=== PATIENT | female | born 1955 | race Hispanic/Latino ===

== ENCOUNTER 2019-02-15 06:45 | Inpatient (IN) | payer MEDICARE, OTHER ==
[~2019-02-15] VITALS: Ht 157.5 cm; Wt 75.8 kg
--- NOTE | ~2019-02-15 | DS ---
[facility] [address] [place], [place] [address] Draft ADMISSION DATE: 02/15/2019 DISCHARGE DATE: 02/17/2019 FINAL DIAGNOSIS: At time of discharge, end-stage osteoarthritis, right knee. PROCEDURE: Right total knee arthroplasty. HISTORY OF PRESENT ILLNESS: The patient is a 63-year-old female with a long history of osteoarthritis in both knees, more symptomatic on the right. She has reached the point where she does not get any symptomatic relief with conservative modalities and therefore presented for an elective total knee arthroplasty on the right. HOSPITAL COURSE: The patient was admitted to Day Surgery on the 15 of February. She was taken to the operating room, where she underwent an Attune fixed bearing PS knee replacement on the right. Postoperatively, she has done extremely well. She has progressed rapidly through physical therapy having met all of her goals. She is getting excellent pain control alternating some OxyIR with tramadol and is no longer having significant nausea problems. Plan is to discharge her home and have her continue outpatient physical therapy at [facility], which is closer to where she lives. We will also send her home with prescriptions for OxyIR and Ultram. She will be continued on Xarelto for DVT prophylaxis for the next month. We will ask her to follow up in a month for re-evaluation and new x-rays. MD JARETH Rubio/EMANUEL /[id number] Copies: PATIENT NAME: RONAK GONG DISCHARGE SUMMARY DATE OF : 51 REPORT #: [id number] PHYSICIAN: REGINA SANTOS MD PCP: LUTHER GROSS REPORT IS CONFIDENTIAL AND NOT TO BE RELEASED WITHOUT AUTHORIZATION [address] [address] Draft ~ PATIENT NAME: RONAK GONG DISCHARGE SUMMARY DATE OF : 51 REPORT #: [id number] PHYSICIAN: REGINA SANTOS MD PCP: LUTHER GROSS REPORT IS CONFIDENTIAL AND NOT TO BE RELEASED WITHOUT AUTHORIZATION
--- OUTSIDE RECORDS SUMMARY | ~2019-02-15 | XMS | Clinical Summary ---
Demographics + + + | Address | [address] | | | [place] [address] | + + + | Home Phone | | + + + | Preferred Language | Unknown | + + + | Marital Status | | + + + | Restorationist Affiliation | Unknown | + + + | Race | Unknown | + + + | Ethnic Group | Unknown | + + + Author + + + | Author | [facility] | | | and [place] | + + + | Organization | [facility] | | | and [place] | + + + | Address | Unknown | + + + | Phone | Unavailable | + + + Support + + + + + | Name | Relationship | Address | Phone | + + + + + | Armand Auguste | ECON | [address] | | | | | [place], [place] | | | | | [address] | | + + + + + | Yesica Rowe | ECON | [address] | | | | | [place], [place] | | | | | [address] | | + + + + + Care Team Providers + +------+ + | Care Dieing Out Machine Operator Name | Role | Phone | + +------+ + | No Physician | PP | Unavailable | + +------+ + Allergies + + + + + + | Active Allergy | Reactions | Severity | Noted | Comments | | | | | Date | | + + + + + + | Sulfa Antibiotics | Rash | Low | 02/02/20 | | | | | | 13 | | + + + + + + Medications + + + +---------+------+------+-------+ | Medication | Sig | Dispensed | Refills | Star | End | Statu | | | | | | t | Date | s | | | | | | Date | | | + + + +---------+------+------+-------+ | | Take 1 tablet by | 60 | 0 | 09/2 | | Activ | | HYDROcodone-acetamin | mouth every 8 hours | tablet | | 04/23 | | e | | ophen (NORCO) 5-325 | as needed. | | | 13 | | | | mg per | | | | | | | | tabletIndications: | | | | | | | | Back pain | | | | | | | + + + +---------+------+------+-------+ | traMADol (ULTRAM) | Take 50 mg by mouth | | 0 | | | Activ | | 50 mg tablet | every 6 hours as | | | | | e | | | needed. | | | | | | + + + +---------+------+------+-------+ Active Problems + + + | Problem | Noted Date | + + + | Sacroiliitis - left | 05/14/2013 | + + + | Trochanteric bursitis of left hip | 03/19/2013 | + + + | Fracture of L3 vertebra | 02/02/2013 | + + + | Fracture of L2 vertebra | 02/02/2013 | + + + | Coccydynia | 02/02/2013 | + + + Family History + + +------+ + | Medical History | Relation | Name | Comments | + + +------+ + | Diabetes | Father | | | + + +------+ + | Cancer | Sister | | | + + +------+ + | High blood pressure | Sister | | | + + +------+ + + +------+--------+ + | Relation | Name | Status | Comments | + +------+--------+ + | Father | | | | + +------+--------+ + | Sister | | | | + +------+--------+ + | Sister | | | | + +------+--------+ + Social History + +-------+ +--------+------+ | Tobacco Use | Types | Packs/Day | Years | Date | | | | | Used | | + +-------+ +--------+------+ | Never Smoker | | | | | + +-------+ +--------+------+ + + + | Sex Assigned at | Date Recorded | | | | + + + | Not on file | | + + + + + + + | Job Start Date | Occupation | Industry | + + + + | Not on file | Not on file | Not on file | + + + + + + + + | Travel History | Travel Start | Travel End | + + + + + + | No recent travel history available. | + + Last Filed Vital Signs + + + + | Vital Sign | Reading | Time Taken | + + + + | Blood Pressure | 143/80 | 12/13/20131121 PDT | + + + + | Pulse | 73 | 12/13/20131121 PDT | + + + + | Temperature | - | - | + + + + | Respiratory Rate | 16 | 12/13/20131121 PDT | + + + + | Oxygen Saturation | - | - | + + + + | Inhaled Oxygen | - | - | | Concentration | | | + + + + | Weight | 78 kg (172 lb) | 02/08/20141203 PDT | + + + + | Height | 157.5 cm (5' 2") | 02/08/20141203 PDT | + + + + | Body Mass Index | 31.46 | 02/08/2014 1204 PDT | + + + + Plan of Treatment + + + + + | Health Maintenance | Due Date | Last Done | Comments | + + + + + | Vaccine: | | | | | Dtap/Tdap/Td (1 - | 2 | | | | Tdap) | | | | + + + + + | Vaccine: Zoster (1 | | | | | of 2) | 3 | | | + + + + + | Vaccine: | | | | | Pneumococcal 65+ | 8 | | | | Low/Medium Risk (1 | | | | | of 2 - PCV13) | | | | + + + + + | Vaccine: Influenza | | | | | (Season Ended) | 9 | | | + + + + + Results Not on filefrom Last 3 Months Insurance + +--------+ +--------+ +---------+--------+ | Payer | Benefi | Subscriber | Effect | Phone | Address | Type | | | t Plan | ID | jackelyn | | | | | | / | | Dates | | | | | | Group | | | | | | + +--------+ +--------+ +---------+--------+ | [employer] | SAIF | [id number] | [phone] | | Indemn | | | WC | | 013-Pr | 5 | | ity | | | | | esent | | | | + +--------+ +--------+ +---------+--------+ + +--------+ +--------+ + + | Guarantor Name | Accoun | Relation to | Date | Phone | Billing Address | | | t Type | Patient | of | | | | | | | | | | + +--------+ +--------+ + + | Chari Auguste | Worker | Self | [birth year] | [address] | | | s Comp | | 1954 | [phone] | [place] [address] | | | | | | 2 (Home) | | | | | | | [phone] | | | | | | | 9 (Work) | | + +--------+ +--------+ + + | Chari Auguste | Person | Self | [birth year] | | [address] | | | al/Fam | | 1954 | [phone] | [place] [address] | | | [place] | | | 2 (Home) | | + +--------+ +--------+ + + Advance Directives Patient has advance care planning documents on file. For more information, please contact:[facility] [place] [address]
--- OUTSIDE RECORDS SUMMARY | ~2019-02-15 | XMS | Clinical Summary ---
Demographics + + + | Address | [address] | | | [place] [address] | + + + | Home Phone | | + + + | Preferred Language | Unknown | + + + | Marital Status | | + + + | Temple Affiliation | Unknown | + + + | Race | Unknown | + + + | Ethnic Group | Unknown | + + + Author + + + | Author | [facility] | + + + | Organization | [facility] | + + + | Address | Unknown | + + + | Phone | Unavailable | + + + Support + + +---------+ + | Name | Relationship | Address | Phone | + + +---------+ + | Yesica Rowe | ECON | Unknown | | + + +---------+ + Care Team Providers + +------+ + | Care Web Content Specialist Name | Role | Phone | + +------+ + | Noreen Martinez MD | PP | Unavailable | + +------+ + Allergies Not on File Current Medications Not on file Active Problems Not on file Social History + +-------+ +--------+------+ | Tobacco Use | Types | Packs/Day | Years | Date | | | | | Used | | + +-------+ +--------+------+ | Never Assessed | | | | | + +-------+ +--------+------+ + + + | Sex Assigned at | Date Recorded | | | | + + + | Not on file | | + + + Plan of Treatment + + + + + | Health Maintenance | Due Date | Last Done | Comments | + + + + + | Vaccine: | | | | | Dtap/Tdap/Td (1 - | 2 | | | | Tdap) | | | | + + + + + | Breast Cancer | | | | | Screening | 3 | | | | (Mammogram) | | | | + + + + + | Colon Cancer | | | | | Screening | 3 | | | | (Colonoscopy) | | | | + + + + + | Vaccine: Zoster (1 | | | | | of 2) | 3 | | | + + + + + | DEXA SCAN SCREENING | | | | | | 8 | | | + + + + + | Vaccine: | | | | | Pneumococcal 65+ | 8 | | | | Low/Medium Risk (1 | | | | | of 2 - PCV13) | | | | + + + + + | Vaccine: Influenza | | 2014 | | | (Season Ended) | 9 | | | + + + + + Results Not on filefrom Last 3 Months Insurance + +--------+ +------+-------+ + | Payer | Benefi | Subscriber | Type | Phone | Address | | | t Plan | ID | | | | | | / | | | | | | | Group | | | | | + +--------+ +------+-------+ + | MEDICAID | [employer] | [id number] | | | [address] | | | [place] | | | | [place] | | | [place] | | | | [phone] | | | SOLUTION STRATEGIST | | | | | + +--------+ +------+-------+ + + +--------+ +--------+ + + | Guarantor Name | Accoun | Relation to | Date | Phone | Billing Address | | | t Type | Patient | of | | | | | | | | | | + +--------+ +--------+ + + | CHARI GONG | Person | Self | [birth year] | Home: | [address] | | | al/Fam | | [phone] [place] | | | [place] | | [phone] | + +--------+ +--------+ + +"
[~2019-02-15 06:45] MED LIST: FLONASE ALLERG9.9 ML NAS; GLUCOPHAGE500 MG PO
--- NOTE | 2019-02-15 07:23 | NUR ---
CHG ORAL RINSE AND NASAL SWAB COMPLETE.
--- NOTE | 2019-02-15 12:23 | NUR ---
02/15/19 1223 Nettie White 1211 PATIENT ARRIVES TO PACU ASLEEP, AWAKENS WITH VERBAL STIMULI, FOLLOWS COMMANDS, DENIES PAIN, THEN BACK TO SLEEP. INITIAL BP LOW, [employer] AT BEDSIDE, PATIENT MEDICATED. RESP EVEN AND UNLABORED, ROOM AIR SATS >90%. 1220 PATIENT CONTINUES TO SLEEP, AWAKENS WITH VERBAL STIMULI, THEN BACK TO SLEEP. RESP EVEN AND UNLABORED, ROOM AIR SATS >90%.
--- NOTE | 2019-02-15 13:20 | NUR ---
NEW ADMIT FROM SURGERY. PT AWAKE AND SPEAKING WITH STAFF. PT APPEARS DROWSY. PT REPORTS RIGHT SHOULDER PAIN. CMS INTACT TO RIGHT KNEE, DRESSING BULKY DRESSING; CDI. ICE OVER INCISION. SPINAL RESOLVING AT L1 APPROX. PT DENIES PAIN TO RIGHT KNEE, HOWEVEVER STATES RIGHT LEG IN NUMB. ORIENTED PT TO ROOM ADD CALL LIGHT. OXYGEN SAT LEVEL ON RA IS 92%. PT DENIES NEEDSS. BED ALARM INTACT AND CALL LIGHT WITHIN REACH.
--- NOTE | 2019-02-15 14:20 | NUR ---
PT AWAKE, ALERT AND ORIENTED X3. PT ON RA, RESP EVEN AND NON LABORED. CMS INTACT TO RIGHT KNEE, DRESSING CDI. SPINAL RESOLVING AT L1. VS STABLE. PT DENIES PAIN. PERSONAL SUPPLIES AND CALL LIGHT WITHIN REACH. NO NEEDS.
--- NOTE | 2019-02-15 15:06 | NUR ---
PT AWAKE, ALERT AND ORIENTED. PT TOLERATED A SNACK WELL. PT DENIES PAIN TO RIGHT KNEE. SPINAL RESOLVING, AT L4 AT THIS TIME. PT'S VS STABLE. PT ON RA, RESP NON LABORED. CMS TO RIGHT KNEE INTACT. ICE OVER DRESSING. PT HAS NO NEEDS. PERSONAL SUPPLIES AND CALL LIGHT WIHTIN REACH.
--- NOTE | 2019-02-15 16:14 | NUR ---
PT SLEEPING AT THIS TIME, RESP EVEN AND NON LABORED. CMS INTACT RIGHT RIGHT KNEE. DRESSSING TO RIGHT KNEE CDI. ICE OVER INCISION. OXYGEN SAT LEVEL 92% ON RA, RESP NON LABORED. PERSONAL SUPPLIES AND CALL LIGHT WITHIN REACH.
[2019-02-15] MEDS ORDERED: DICLOFENAC SODI50 MG PO (16:39)
[2019-02-15] MEDS ORDERED: CLOTRIMAZOLE-BE15 GM TOP (16:39)
--- NOTE | 2019-02-15 16:40 | NUR ---
MED REC COMPLETE
--- NOTE | 2019-02-15 17:39 | NUR ---
ADMIN ZOFRAN 4MG IVP FOR N/V.
--- NOTE | 2019-02-15 17:46 | NUR ---
BS SPOT CHECK [address] LLANOS TO CONSULT FOR MEDICAL CO-MANAGEMENT. PT NAUSEATED, PER PT REQUEST SPOT CHECKED BS.
--- NOTE | 2019-02-15 18:40 | NUR ---
PT RESTING, EYES CLOSED. RR 16, EVEN AND NON LABORED.
--- NOTE | 2019-02-15 19:15 | NUR ---
ROUNDED CHARGE. PATIENT IS RESTING IN BED. PATIENT DENIES ANY COMMENTS, QUESITONS, OR CONCERNS. NO PAIN OR NAUSEA NOTED. NO NEEDS NOTED. CALL LIGHT IN REACH.
--- NOTE | 2019-02-15 21:28 | NUR ---
V/S TAKEN AND RECORDED. APPLE SAUCE AND ORANGE JUICE GIVEN PER PATIENT'S REQUEST.
--- NOTE | 2019-02-15 22:10 | NUR ---
PATIENT RESTING QUIETLY, EYES CLOSED, RESPIRATIONS REGULAR AND EVEN.
--- NOTE | 2019-02-16 00:09 | NUR ---
2 PA USE THE BED JONES. ORANGE JUICE APPLE SAUCE AND JELLO GIVEN. CALL LIGHT IN REACH. BED ALARM ON.
--- NOTE | 2019-02-16 01:39 | NUR ---
PATIENT STARTING TO HAVE PAIN IN HER RIGHT KNEE NOW. 8MG PO DILAUDUD GIVEN COREY WITH 2PM SCHEDULED MEDS.
--- NOTE | 2019-02-16 05:24 | NUR ---
PATIENT WAS JUST UP OUT OF BED AND URINATED IN THE COMMODE 1,000MLS. PATIENT'S ICE PACKS WERE REFILLED AND SHE NOW BACK IN BED. WITH THE IV TORADOL, PO TYLENOL, AND 8MG OF PO DILAUDID THE PATIENT GOT, PATIENT HAS BEEN PAIN FREE UNLESS SHE IS MOVING AND THEN PAIN IS 2/10. DRESSING TO RIGHT KNEE CDI. PNEUMATIC DEVICES TO BOTH FEET.
--- NOTE | 2019-02-16 06:15 | NUR ---
SBP AT 0600 WAS LOW AT 93. IT WAS MANNUALLY TAKEN AND THE BP WAS 83/58. RN FARIHA WAS INFORMED. BP WILL BE TAKEN AGAIN IN A FEW MINUTES. PT IS ALERT AND ORIENTED BUT STATED THAT SHE WAS TIERD.
--- NOTE | 2019-02-16 07:32 | NUR ---
Pt sleeping at this time, resp even and non labored. Pt appears comfortable, flacc 0/10. Call light within reach.
--- NOTE | 2019-02-16 08:11 | NUR ---
Admin Oxycodone 5mg po for reports of 5/10 right knee pain.
--- NOTE | 2019-02-16 10:00 | NUR ---
IS INSTRUCTIONS PROVIDED TO PT. PT ABLE TO DEMONSTRATE USE PROPERLY. ENCOURAGED IS USE 10X WHILE AWAKE EACH HR, PT AWARE OF GOAL AND WILL CONTINUE TO MONITOR.
--- NOTE | 2019-02-16 11:00 | OR ---
[facility] [address] [place], [place] [address] Signed DATE OF OPERATION: 02/15/2019 SURGEON: Adelfo Santos MD PREOPERATIVE DIAGNOSIS: End-stage osteoarthritis, right knee. POSTOPERATIVE DIAGNOSIS: End-stage osteoarthritis, right knee. PROCEDURE: Right total knee arthroplasty. ANESTHESIA: Spinal with sedation. SPECIMENS AND COMPLICATIONS: There were no specimens or complications. TOURNIQUET TIME: About 80 minutes. IMPLANTS: Attune size #4 narrow PS distal femur, a size #3 tibial tray, fixed bearing, an 8 mm size #4 PS poly and a 32 mm all-poly patellar button. WHAT WAS DONE: The patient was taken to the operating room. After anesthesia was induced and the airway secured, the patient was positioned, prepped and draped in a routine sterile fashion. The leg was exsanguinated with elevation and pneumatic tourniquet was inflated to 300 mmHg pressure. A straight anterior approach was made to the knee through skin and subcutaneous tissue. Hemostasis was achieved with electrocautery. A small medial flap was created. An anteromedial arthrotomy performed. The patella was turned up on edge and we removed about 9 mm off the posterior aspect of the patella and placed drill holes for a 32 mm all-poly patellar button. We then press fit the trial patellar button into the drill holes and found we had reconstituted the pre-resection patellar height of 22 mm. We then placed the patella in the lateral recess and flexed the knee. Using the [employer] navigation system, we digitized the distal femur following the protocols and then accomplished distal femoral resection in neutral varus valgus, 3 degrees of flexion, and removing about 10 mm off the high side, which was the lateral side. The Electronically Signed By: ADELFO SANTOS MD 02/16/19 [facility] PATIENT NAME: RONAK GONG OPERATIVE REPORT DATE OF : 51 REPORT #: [id number] PHYSICIAN: ADELFO SANTOS MD PCP: NO PRIMARY CARE PHYSICIAN REPORT IS CONFIDENTIAL AND NOT TO BE RELEASED WITHOUT AUTHORIZATION [facility] [address] [place], [place] [address] Signed femoral wafers were removed. We then transitioned the navigation system to the proximal tibia and again following the computer prompts, digitized the proximal tibia. Proximal tibia was then resected removing about 5 mm off the medial side in neutral varus valgus and about 3 degrees of posterior slope as indicated by the Attune protocol. We then removed the tibial wafer along with remnants of the medial and lateral menisci. Femoral sizing jig was placed on the distal femur and the distal femur sized to a size #4. A size #4 cutting block was placed on the distal femur. Anterior, posterior, and chamfer cuts were made and 3 degrees of external rotation. After removing all of these bony fragments, the notch cutting block was placed on the distal femur and the notch was cut out for the PS box. This enabled us to remove the final portions of the medial and lateral menisci, ACL, and PCL. We then placed the femoral trial on the distal femur, a size #3 tibial tray on the proximal tibia, and trialed several different sizes of poly. We were quite happy with the 7 mm poly insert. It gave us full extension, had good flexion-extension balance, and there is no instability. We therefore marked the rotational alignment of the tibial tray. We removed the trials after drilling the lug holes for the femoral component. We then placed the tibial guide on the proximal tibia, corrected the rotational alignment, and prepared it with a reamer and broach. Knee was copiously irrigated and meticulously dried. We then cemented the tibial tray, the femoral component, and the patellar button in place. We trial fit a trial 7 mm poly and held the knee in full extension until the cement had completely cured. Once the cement had cured, we removed the trial poly, saw marginal osteophytes, and no marginal cementophytes. We therefore irrigated the knee with IrriSept and then placed the final poly in place. Although, we found we were actually able to upsize to an 8 mm poly and not compromise our extension. We therefore snap-fit the 8 mm poly into the tray and we were happy with the alignment, position stability and patellofemoral tracking. The knee was again gently irrigated and closed in standard fashion. Sterile dressings were applied. The patient was awakened, taken to recovery room, and she arrived in stable condition. Counts were correct and antibiotic protocols were followed. Adelfo Santos MD WFB/MODL /[id number] Copies: Electronically Signed By: ADELFO SANTOS MD 02/16/19 1100 PATIENT NAME: RONAK GONG OPERATIVE REPORT DATE OF : 51 REPORT #: [id number] PHYSICIAN: ADELFO SANTOS MD PCP: NO PRIMARY CARE PHYSICIAN REPORT IS CONFIDENTIAL AND NOT TO BE RELEASED WITHOUT AUTHORIZATION [facility] [address] [place], [place] [address] Signed ~ Electronically Signed By: ADELFO SANTOS MD 02/16/19 1100 PATIENT NAME: FARIDEHRONAK OPERATIVE REPORT DATE OF : 51 REPORT #: [id number] PHYSICIAN: ADELFO SANTOS MD PCP: NO PRIMARY CARE PHYSICIAN REPORT IS CONFIDENTIAL AND NOT TO BE RELEASED WITHOUT AUTHORIZATION
--- NOTE | 2019-02-16 12:30 | NUR ---
FAXED CHART NOTES TO [facility] INCLUDING FACE SHEET,ORDER, OP NOTES, PROG NOTES, PT EVAL AND NOTES. RECIEVED FAX CONFIRMATION. ALSO TALKED WITH TONY AT [facility].
--- NOTE | 2019-02-16 13:51 | NUR ---
REPORT RECEIVED FROM MELLY GARCIA. PT IN BED. ICE TO RIGHT KNEE. SL. REPORTS PAIN 2/10 WHILE LYING DOWN AND 3/10 WITH AMBULATION. CPOX IN PLACE. CALL LIGHT IN REACH. MIRIAMS SIRIA.
--- NOTE | 2019-02-16 14:21 | NUR ---
PHYSICLA THERAPY IN ROOM TO WORK WITH PT. PAIN RATED AT 4/10. SCHEDULED AND PRN PAIN MEDICATION
--- NOTE | 2019-02-16 18:03 | NUR ---
PATIENT IS IN THE BED RESTING. SHE IS EATING DINNER. WATER REFRESHED. CALL LIGHT IN REACH.
--- NOTE | 2019-02-16 18:55 | NUR ---
PT WITH ITCHING ALL OVER BODY. BENADRYL ADMINISTERED. 1L NC IN PLACE AND CPOX. CALL LIGHT IN REACH.
--- NOTE | 2019-02-16 21:15 | NUR ---
ASIM HAS BEEN RESTING QUIETTLY IN BED. HER PAIN IS MANAGED AT 2/10 AT THIS TIME AND SHE DOES NOT WISH TO HAVE ANY EXTRA PAIN MEDICATION. DRESSING DRY AND INTACT. PATIENT ON CPOX AND SATS ARE SATISFACTORY.
--- NOTE | 2019-02-16 21:56 | NUR ---
ROUNDED CHARGE. PATIENT IS RESTING IN BED. PATIENT DENIES ANY PAIN. PATIENT DENIES ANY COMMENTS, QUESTIONS, OR CONCERNS. NO NEEDS NOTED. CALL LIGHT IN REACH.
--- NOTE | 2019-02-16 23:29 | NUR ---
Patient was up to the restroom, with 1p stand by, changed bedding, patient walked with a 4WW from bed to bathroom. bathroom back to bed, fresh water and sprite was given, call light in reach.
--- NOTE | 2019-02-17 00:35 | NUR ---
PATIENT CALLED HAVING 8/10 RT KNEE PAIN. 10 MG PO OXYCODONE GIVEN.
--- NOTE | 2019-02-17 03:05 | NUR ---
MORNING MEDS GIVEN. PATIENT HAVING NO PAIN AT THIS TIME AND HAD NO THER CARE NEEDS.
--- NOTE | 2019-02-17 05:13 | NUR ---
PATIENT IS AWAKE IN BED AND SAYS SHE IS DOING FINE. PAIN HAS BEEN CONTROLLED IN THAT RIGHT KNEE WITH SCHEDULED TORADOL AND TYLENOL FOR THE MOST PART WITH 10MG OF OXYCODONE GIVEN ONCE DURING THE SHIFT. PATIENT HAS BEEN EATING APPLESAUCE AND TAKING FLUIDS WELL. IV FLUSHES WELL AND IS WITHING NORMAL LIMITS. RT KNEE DRESSING DRY AND INTACT. SCD, FOOT PUMPS IN PLACE. PATIENT HAS HAD NO NEEDS AT THIS TIME.
--- NOTE | 2019-02-17 07:10 | NUR ---
PT RESTING SUPIN EIN BED WATCHING TV. BEDSIDE REPORT RECEIVED FROM RADHA FRIED. ENRICO WRAP CDI, SCD'S IN PLACE. PT DENIES NEEDS/CONCERNS. CALL LIGHT AND H20 IN REACH.
--- NOTE | 2019-02-17 08:10 | NUR ---
PATIENT SITTING UP IN BED EATING BREAKFAST. CALL LIGHT IN REACH. NO FURTHER NEEDS AT THIS TIME.
--- NOTE | 2019-02-17 08:43 | NUR ---
PATIENT ON ROOM AIR. PATIENT WAS RESTING IN BED WITH 1L NC SATS ARE 92-94%. CALL TO RT FOR O2 EVALUATION.
--- NOTE | 2019-02-17 09:19 | NUR ---
ATTEMPTED TO GIVE THE PT HER MORNING MEDICATIONS. SHE IS CURRENTLY WORKING WITH THE PHYSICAL THERAPIST IN THE PHYSICAL THERAPY ROOM. MEDICATIONS NOT GIVEN AT THIS TIME. THE PATIENT'S PRIMARY NURSE NOTIFIED OF THIS.
--- NOTE | 2019-02-17 09:24 | NUR ---
CHECKED WITH PT THIS AM STATES SHE RECIEVED HER FRONT WHEELED WALKER.
--- NOTE | 2019-02-17 09:37 | NUR ---
PT BACK TO ROOM FROM WORKING WITH PT. AM MEDS ADMINISTERED. CALL LIGHT AND H20 IN REACH. ASSESSMENT COMPELTED. PT DENIES NEEDS/CONCERNS AT THIS TIME.
[2019-02-17] MEDS ORDERED: XARELTO10 MG PO (11:08)
[2019-02-17] MEDS ORDERED: OXYCODONE HCL10 MG PO (11:10)
[2019-02-17] MEDS ORDERED: ULTRAM50 MG PO (11:11)
--- NOTE | 2019-02-17 11:42 | NUR ---
PT REPORTS NOT HAVING A BM SINCE ADMISSION BUT STATES SHE HAS BEEN PASSING SOME GAS. PT REPORTS TOLERATING ALL OF MIRILAX THIS AM WITH NO RESULTS. PT PROVIDED WITH PRUNE JUICE PER HER REQUEST. CALL LIGHT AND H2O IN REACH. PT DENIES FURTHER NEEDS/CONCERNS. FAMILY AT BEDSIDE VISITING WITH PATIENT.
--- NOTE | 2019-02-17 14:05 | NUR ---
PATIENT SITTING ON SIDE OF BED, VISITOR IN ROOM. CALL LIGHT IN REACH. NO FURTHER NEEDS AT THIS TIME.
--- NOTE | 2019-02-17 14:22 | NUR ---
IV TAKEN OUT UPON RN REQUEST. CATH INTAKE AND LOOKES GOOD.
== END 2019-02-17 15:26 | disposition home or self-care (01) | DRG 470 ==
LOC: DS 06:45 → OPS 06:45 → MS 13:10 → OPS 13:11 → MS 13:12
PROVIDERS: ADMIT Orthopaedic Surgery
PROC: 8E0YXBZ Computer Assisted Procedure of Lower Extremity (ICD-10-PCS; 2019-02-15)
PROC: 0SRC0J9 Replacement of Right Knee Joint with Synthetic Substitute, Cemented, Open Approach (ICD-10-PCS; principal; 2019-02-15 09:30)
DX: M17.11 Unilateral primary osteoarthritis, right knee (principal); I10 Essential (primary) hypertension; E66.9 Obesity, unspecified; R11.2 Nausea with vomiting, unspecified; E88.81 Metabolic syndrome and other insulin resistance; Z88.2 Allergy status to sulfonamides; Z79.84 Long term (current) use of oral hypoglycemic drugs; Z79.1 Long term (current) use of non-steroidal anti-inflammatories (NSAID); Z68.30 Body mass index [BMI] 30.0-30.9, adult; Z79.51 Long term (current) use of inhaled steroids
CPT/HCPCS: 01402; 36415; 73560; 80048; 85025; 94762; 97110; 97116; 97162; C1713; C1776; J0690; J1200; J1885; J2250; J2274; J2405; J2704; J3010; J7120